=== PATIENT | male | born 2000 | race Caucasian/White ===

== ENCOUNTER 2021-02-19 08:34 | Emergency (ER) | payer OTHER ==
[2021-02-19 08:39] VITALS: BP 134/79; PULSE 88; RESP 18; TEMP 98.8
[2021-02-19] MEDS ORDERED: PENICILLIN V POTASSIUM 250 MG TAB PO STA (09:10)
[2021-02-19] MEDS ORDERED: KETOROLAC 15 MG/ML 1 ML VIAL IM STA (09:10)
--- NOTE | 2021-02-19 09:13 | ED ---
ENT HPI - General Chief complaint: Dental/Oral Stated complaint: dental pain Time Seen by Provider: 02/19/21 08:48 Source: patient Mode of arrival: ambulatory Limitations: no limitations - History of Present Illness Initial comments: Patient is a 20-year-old male presenting to the emergency Department with complaints of right-sided jaw swelling and dental pain started yesterday. Patient states he noticed a little discomfort yesterday and some mild jaw swelling but woke up early this morning with the swelling increased. He states he did take some Tylenol which seemed to help a little bit with the discomfort. He states this has happened in the past. He has yet to see a dentist regarding this. He has a fractured tooth in the right lower area that keeps causing him problems. He denies any fevers or chills, no nausea or vomiting. He currently rates his pain a 6/10. He has no further complaints at this time. - Related Data Previous Rx's Medication Instructions Recorded Penicillin V Potassium [Pen Vee K] 500 mg PO QID 10 Days #40 tablet 02/19/21 Allergies Allergy/AdvReac Type Severity Reaction Status Date / Time No Known Allergies Allergy Verified 02/19/21 08:38 Review of Systems ROS Statement: Those systems with pertinent positive or pertinent negative responses have been documented in the HPI. ROS Other: All systems not noted in ROS Statement are negative. Past Medical History Past Medical History: No Reported History History of Any Multi-Drug Resistant Organisms: None Reported Past Surgical History: No Surgical Hx Reported Past Psychological History: No Psychological Hx Reported Smoking Status: Current every day smoker Past Alcohol Use History: None Reported Past Drug Use History: None Reported General Exam - General Exam Comments Initial Comments: GENERAL: Patient is well-developed and well-nourished. Patient is nontoxic and in no acute distress. HEAD: Atraumatic, normocephalic. EYES: Pupils equal round and reactive to light, extraocular movements intact, sclera anicteric, conjunctiva are normal. Eyelids were unremarkable. ENT: TMs normal, nares patent, oropharynx clear without exudates. Moist mucous membranes. Patient has mild to moderate right sided lower jaw swelling, this does not go below the jaw line. He does have a fractured tooth and many dental caries on the right lower side, pain with palpation. Is having very small dental abscess noted on tooth #30. NECK: Normal range of motion, supple without lymphadenopathy or JVD. LUNGS: Unlabored respirations. Breath sounds clear to auscultation bilaterally and equal. No wheezes rales or rhonchi. HEART: Regular rate and rhythm without murmurs, rubs or gallops. ABDOMEN: Soft, nontender, normoactive bowel sounds. No guarding, no rebound. No masses appreciated. : Deferred MUSCULOSKELETAL: Normal extremities with adequate strength and normal range of motion, no pitting or edema. No clubbing or cyanosis. NEUROLOGICAL: Patient is alert and oriented x 3. Motor and sensory are also intact. Cranial nerves II through XII grossly intact. Symmetrical smile. Normal speech, normal gait. PSYCH: Normal mood, normal affect. SKIN: Warm, Dry, normal turgor, no rashes or lesions noted. Limitations: no limitations Course Vital Signs 02/19/21 08:37 Temperature 98.8 F Pulse Rate 88 Respiratory 18 Rate Blood Pressure 134/79 O2 Sat by Pulse 96 Oximetry Medical Decision Making - Medical Decision Making Patient is a 20-year-old male here for right-sided jaw swelling and dental pain that started yesterday. No fevers, his vitals are stable. He does have mild to moderate swelling of the right jaw, many dental decayed teeth, pain and small abscess present on tooth #30. I was able to get abscess to drain with a 27- gauge needle. I will start him on penicillin for dental abscess, Toradol given in the ER. He will follow up with dentist as soon as possible. Return parameters were discussed with him and he verbalized understanding. Case discussed with Dr. Eckert. Disposition Clinical Impression: Dental caries, Fracture of tooth, Dental abscess Disposition: HOME SELF-CARE Condition: Stable Instructions (If sedation given, give patient instructions): Dental Abscess (ED) Additional Instructions: Please return to the Emergency Department if symptoms worsen or any other concerns. Take antibiotics as prescribed, finish entire course. Recommend ibuprofen for discomfort and swelling, may alternate it with Tylenol. Follow-up with your dentist as soon as possible. Please follow up with the [facility] dental clinic. [facility] [place] [address]. Phone number for new patients or [phone] for existing patients. Prescriptions: Penicillin V Potassium [Pen Vee K] 500 mg PO QID 10 Days #40 tablet Is patient prescribed a controlled substance at d/c from ED?: No Referrals: None,Stated [Primary Care Provider] - 1-2 days Time of Disposition: 09:12
== END 2021-02-19 09:38 | disposition home or self-care (01) ==
LOC: EC 08:34
DX: S02.5XXA Fracture of tooth (traumatic), initial encounter for closed fracture (principal); K04.7 Periapical abscess without sinus; K02.9 Dental caries, unspecified; F17.200 Nicotine dependence, unspecified, uncomplicated; X58.XXXA Exposure to other specified factors, initial encounter
CPT/HCPCS: 41800; 96372; 99282

== ENCOUNTER 2021-04-11 09:11 | Emergency (ER) | payer OTHER ==
[2021-04-11 09:15] VITALS: TEMP 97.7
[2021-04-11] MEDS ORDERED: KETOROLAC 15 MG/ML 1 ML VIAL IVP STA (09:21)
--- NOTE | 2021-04-11 09:31 | ED ---
General Adult HPI - General Chief complaint: Chest Pain Stated complaint: Chest Pain Time Seen by Provider: 04/11/21 09:16 Source: patient Mode of arrival: wheelchair Limitations: no limitations - History of Present Illness Initial comments: 20-year-old male without any significant past medical history presents to the emergency room for a chief complaint of chest pain. Patient reports he developed chest pain at some point last night. States it is a sharp pain in the left side of his chest. States it hurts worse when he moves or takes a deep breath. States when he takes a deep breath he feels like he is being stabbed with a knife in his chest. Patient denies any radiating pain. Denies associated shortness of breath or diaphoresis.Patient has no other complaints at this time including shortness of breath, abdominal pain, nausea or vomiting, headache, or visual changes. - Related Data Home Medications Medication Instructions Recorded Confirmed Divalproex [Depakote] 250 mg PO BID 04/11/21 04/11/21 Allergies Allergy/AdvReac Type Severity Reaction Status Date / Time No Known Allergies Allergy Verified 04/11/21 09:49 Review of Systems ROS Statement: Those systems with pertinent positive or pertinent negative responses have been documented in the HPI. ROS Other: All systems not noted in ROS Statement are negative. Past Medical History Past Medical History: No Reported History History of Any Multi-Drug Resistant Organisms: None Reported Past Surgical History: No Surgical Hx Reported Past Psychological History: Bipolar Smoking Status: Current every day smoker Past Alcohol Use History: None Reported Past Drug Use History: None Reported General Exam Limitations: no limitations General appearance: alert, in no apparent distress Head exam: Present: atraumatic, normocephalic, normal inspection Eye exam: Present: normal appearance, PERRL, EOMI. Absent: scleral icterus, conjunctival injection, periorbital swelling ENT exam: Present: normal exam, mucous membranes moist Neck exam: Present: normal inspection, full ROM. Absent: tenderness, meningismus, lymphadenopathy Respiratory exam: Present: normal lung sounds bilaterally, chest wall tenderness. Absent: respiratory distress, wheezes, rales, rhonchi, stridor Cardiovascular Exam: Present: regular rate, normal rhythm, normal heart sounds. Absent: systolic murmur, diastolic murmur, rubs, gallop, clicks GI/Abdominal exam: Present: soft, normal bowel sounds. Absent: distended, tenderness, guarding, rebound, rigid Neurological exam: Present: alert Course Vital Signs 04/11/21 04/11/21 09:12 10:27 Temperature 97.7 F Pulse Rate 63 89 Respiratory 18 16 Rate Blood Pressure 123/70 110/54 O2 Sat by Pulse 98 99 Oximetry EKG Findings - EKG Comments: EKG Findings:: Sinus bradycardia, ventricular rate 58, TX interval 122, QTC 390 Medical Decision Making - Medical Decision Making Vitals are stable. CBC CMP unremarkable. EKG nonischemic. Troponin is negative. D-dimer is negative. Chest x-ray shows no acute process. Patient's pain is atypical in nature. It is pleuritic and sharp. Suspect inflammatory cause. Recommended taking Motrin for anti-inflammation and following up with primary care. He will return here for any worsening symptoms. - Lab Data Result diagrams: 04/11/21 09:33 04/11/21 09:33 Lab Results 04/11/21 04/11/21 04/11/21 Range/Units 09:33 09:33 09:33 WBC 5.0 (3.8-10.6) k/uL RBC 5.23 (4.30-5.90) m/uL Hgb 15.3 (13.0-17.5) gm/dL Hct 46.1 (39.0-53.0) % MCV 88.0 (80.0-100.0) fL MCH 29.2 (25.0-35.0) pg MCHC 33.2 (31.0-37.0) g/dL RDW 13.3 (11.5-15.5) % Plt Count 212 (150-450) k/uL MPV 8.4 Neutrophils % 51 % Lymphocytes % 34 % Monocytes % 8 % Eosinophils % 5 % Basophils % 1 % Neutrophils # 2.6 (1.3-7.7) k/uL Lymphocytes # 1.7 (1.0-4.8) k/uL Monocytes # 0.4 (0-1.0) k/uL Eosinophils # 0.2 (0-0.7) k/uL Basophils # 0.0 (0-0.2) k/uL PT 11.2 (9.0-12.0) sec INR 1.1 (<1.2) APTT 25.2 (22.0-30.0) sec D-Dimer <0.17 (<0.60) mg/L FEU Sodium 139 (137-145) mmol/L Potassium 4.4 (3.5-5.1) mmol/L Chloride 107 (98-107) mmol/L Carbon Dioxide 23 (22-30) mmol/L Anion Gap 9 mmol/L BUN 10 (9-20) mg/dL Creatinine 0.69 (0.66-1.25) mg/dL Est GFR (CKD-EPI)AfAm >90 (>60 ml/min/1.73 sqM) Est GFR (CKD-EPI)NonAf >90 (>60 ml/min/1.73 sqM) Glucose 95 (74-99) mg/dL Calcium 9.6 (8.4-10.2) mg/dL Magnesium 1.9 (1.6-2.3) mg/dL Total Bilirubin 0.9 (0.2-1.3) mg/dL AST 24 (17-59) U/L ALT 12 (4-49) U/L Alkaline Phosphatase 89 (38-126) U/L Troponin I (0.000-0.034) ng/mL Total Protein 6.9 (6.3-8.2) g/dL Albumin 4.1 (3.5-5.0) g/dL Amylase 64 (30-110) U/L 04/11/21 Range/Units 09:33 WBC (3.8-10.6) k/uL RBC (4.30-5.90) m/uL Hgb (13.0-17.5) gm/dL Hct (39.0-53.0) % MCV (80.0-100.0) fL MCH (25.0-35.0) pg MCHC (31.0-37.0) g/dL RDW (11.5-15.5) % Plt Count (150-450) k/uL MPV Neutrophils % % Lymphocytes % % Monocytes % % Eosinophils % % Basophils % % Neutrophils # (1.3-7.7) k/uL Lymphocytes # (1.0-4.8) k/uL Monocytes # (0-1.0) k/uL Eosinophils # (0-0.7) k/uL Basophils # (0-0.2) k/uL PT (9.0-12.0) sec INR (<1.2) APTT (22.0-30.0) sec D-Dimer (<0.60) mg/L FEU Sodium (137-145) mmol/L Potassium (3.5-5.1) mmol/L Chloride (98-107) mmol/L Carbon Dioxide (22-30) mmol/L Anion Gap mmol/L BUN (9-20) mg/dL Creatinine (0.66-1.25) mg/dL Est GFR (CKD-EPI)AfAm (>60 ml/min/1.73 sqM) Est GFR (CKD-EPI)NonAf (>60 ml/min/1.73 sqM) Glucose (74-99) mg/dL Calcium (8.4-10.2) mg/dL Magnesium (1.6-2.3) mg/dL Total Bilirubin (0.2-1.3) mg/dL AST (17-59) U/L ALT (4-49) U/L Alkaline Phosphatase (38-126) U/L Troponin I <0.012 (0.000-0.034) ng/mL Total Protein (6.3-8.2) g/dL Albumin (3.5-5.0) g/dL Amylase (30-110) U/L Disposition Clinical Impression: Atypical chest pain Disposition: HOME SELF-CARE Condition: Good Instructions (If sedation given, give patient instructions): Pleurisy (ED) Additional Instructions: Take Motrin 3-4 times daily. Follow-up with your doctor. Return to the emergency room for any worsening symptoms. Is patient prescribed a controlled substance at d/c from ED?: No Referrals: Navjot Kraft MD [REFERRING] - 1-2 days Time of Disposition: 11:53
--- NOTE | 2021-04-11 09:58 | XR ---
EXAMINATION TYPE: XR chest 2V DATE OF EXAM: 04/11/2021 COMPARISON: Chest x-ray May 30, 2020 HISTORY: Chest pain. TECHNIQUE: Frontal and lateral views of the chest are obtained. FINDINGS: There is no focal air space opacity, pleural effusion, or pneumothorax seen. The cardiac silhouette size remains within normal limits. The osseous structures are intact. Overlying EKG lead s on current study. IMPRESSION: No acute process. No significant change from prior.
[2021-04-11 10:26] LABS: Basophils % (A) 1 %; Eosinophils # (A) 0.2 k/uL (0-0.7); Eosinophils % (A) 5 %; HCT 46.1 % (39.0-53.0); HGB 15.3 gm/dL (13.0-17.5); Lymphocytes # (A) 1.7 k/uL (1.0-4.8); Lymphocytes % (A) 34 %; MCH 29.2 pg (25.0-35.0); MCHC 33.2 g/dL (31.0-37.0); Mean Platelet Volume 8.4; Monocytes # (A) 0.4 k/uL (0-1.0); Monocytes % (A) 8 %; Neutrophils # (A) 2.6 k/uL (1.3-7.7); Neutrophils % (A) 51 %; Platelet Count 212 k/uL (150-450); RBC 5.23 m/uL (4.30-5.90); RDW 13.3 % (11.5-15.5)
[2021-04-11 10:28] VITALS: RESP 16
[2021-04-11 10:37] LABS: ALT 12 U/L (4-49); AST 24 U/L (17-59); African American GFR (CKD) >90 (>60 ml/min/1.73 sqM); Albumin 4.1 g/dL (3.5-5.0); Alkaline Phosphatase 89 U/L (38-126); Amylase 64 U/L (30-110); Anion Gap 9 mmol/L; Blood Urea Nitrogen 10 mg/dL (9-20); Calcium 9.6 mg/dL (8.4-10.2); Carbon Dioxide 23 mmol/L (22-30); Chloride 107 mmol/L (98-107); Glucose 95 mg/dL (74-99); Magnesium 1.9 mg/dL (1.6-2.3); Non-African American GFR(CKD) >90 (>60 ml/min/1.73 sqM); Potassium 4.4 mmol/L (3.5-5.1); Sodium 139 mmol/L (137-145); Total Bilirubin 0.9 mg/dL (0.2-1.3); Total Protein 6.9 g/dL (6.3-8.2)
[2021-04-11 10:44] LABS: INR 1.1 (<1.2); Partial Thromboplastin Time 25.2 sec (22.0-30.0); Prothrombin Time 11.2 sec (9.0-12.0)
[2021-04-11 12:01] VITALS: BP 103/89; PULSE 79
== END 2021-04-11 12:00 | disposition home or self-care (01) ==
LOC: EC 09:11
DX: R07.89 Other chest pain (principal); F17.200 Nicotine dependence, unspecified, uncomplicated; F31.9 Bipolar disorder, unspecified
CPT/HCPCS: 99284; 96374; 36415; 93005; 85379; 80053; 82150; 83735; 84484; 85025; 85610; 85730; 71046; J1885

== ENCOUNTER 2021-07-05 08:14 | Emergency (ER) | payer BC, OTHER ==
[2021-07-05 08:18] VITALS: BP 114/69; PULSE 88; RESP 18; TEMP 97.5
--- NOTE | 2021-07-05 08:59 | XR ---
EXAMINATION TYPE: XR Hip RT and AP Pelvis DATE OF EXAM: 07/05/2021 COMPARISON: NONE HISTORY: Right hip pain TECHNIQUE: A single AP view of the pelvis is obtained. Two views of the right hip are obtained. FINDINGS: There is no acute fracture/dislocation evident in the pelvis. The hip and sacroiliac join ts appear symmetric and unremarkable. The overlying soft tissue appears unremarkable. Two views of right hip show no acute fracture or dislocation. No focal lytic or sclerotic lesion see n in the proximal right femur. The overlying soft tissue is unremarkable. IMPRESSION: There is no acute fracture or dislocation in the pelvis or right hip. Right hip MRI may be of benefit.
[2021-07-05] MEDS ORDERED: KETOROLAC 15 MG/ML 1 ML VIAL IM STA (09:07)
--- NOTE | 2021-07-05 09:18 | ED ---
Extremity Problem HPI - General Chief complaint: Extremity Problem,Nontraumatic Stated complaint: hip pain Time Seen by Provider: 07/05/21 08:22 Source: patient, RN notes reviewed Limitations: no limitations - History of Present Illness Initial comments: Patient is a 21-year-old male that presents to emergency room complaining of right hip pain. He notes the pain is worse when he walks and flexes his hip. He denied any nausea vomiting. He is otherwise well-appearing. He notes that the pains been going on since Thursday. He notes that at rest pain is minimal. He notes that when he pushed on his lower anterior hip he has pain he suspects is more muscular but wanted to check to make sure it wasn't anything bone related. Patient denied chest pain shortness of breath headache nausea vomiting diarrhea constipation fever fatigue chills. Patient is able to ambulate on its own without difficulty. - Related Data Home Medications Medication Instructions Recorded Confirmed Divalproex [Depakote] 250 mg PO BID 04/11/21 04/11/21 Allergies Allergy/AdvReac Type Severity Reaction Status Date / Time No Known Allergies Allergy Verified 07/05/21 08:18 Review of Systems ROS Statement: Those systems with pertinent positive or pertinent negative responses have been documented in the HPI. ROS Other: All systems not noted in ROS Statement are negative. Past Medical History Past Medical History: No Reported History History of Any Multi-Drug Resistant Organisms: None Reported Past Surgical History: No Surgical Hx Reported Additional Past Surgical History / Comment(s): testical surgery at 9. Past Psychological History: Bipolar Smoking Status: Current every day smoker, Vaper Past Alcohol Use History: Occasional Past Drug Use History: None Reported General Exam Limitations: no limitations General appearance: alert, in no apparent distress Head exam: Present: atraumatic, normocephalic, normal inspection Eye exam: Present: normal appearance, PERRL, EOMI. Absent: scleral icterus, conjunctival injection, periorbital swelling ENT exam: Present: normal exam, mucous membranes moist Neck exam: Present: normal inspection Respiratory exam: Present: normal lung sounds bilaterally. Absent: respiratory distress, wheezes, rales, rhonchi, stridor Cardiovascular Exam: Present: regular rate, normal rhythm, normal heart sounds. Absent: systolic murmur, diastolic murmur, rubs, gallop, clicks GI/Abdominal exam: Present: soft, normal bowel sounds. Absent: distended, tenderness, guarding, rebound, rigid Right Hip exam: Present: normal inspection, full ROM, tenderness (Over the anterior aspect in the area of the hip flexor.). Absent: swelling, abrasion, laceration, ecchymosis, deformity, crepitus, dislocation, erythema, external rotation, internal rotation, shortening, pelvic stability Neurological exam: Present: alert, oriented X3 Psychiatric exam: Present: normal affect, normal mood Skin exam: Present: warm, dry, intact, normal color. Absent: rash Course Vital Signs 07/05/21 08:15 Temperature 97.5 F L Pulse Rate 88 Respiratory 18 Rate Blood Pressure 114/69 O2 Sat by Pulse 97 Oximetry Medical Decision Making - Medical Decision Making 21-year-old male complaining of right hip pain. X-ray the right hip and pelvis ordered. X-ray negative for any acute fractures or dislocations. Given patient's clinical signs or symptoms and negative imaging most likely has a muscle strain in the hip flexor. Case discussed with Dr. Liu, patient discharge. - Radiology Data Radiology results: report reviewed, image reviewed right hip/AP pelvis xray: no acute fracture or dislocation seen. Disposition Clinical Impression: Muscle strain, Strain of hip flexor Disposition: HOME SELF-CARE Condition: Stable Instructions (If sedation given, give patient instructions): Muscle Strain (ED) Additional Instructions: Please return to the Emergency Department if symptoms worsen or any other concerns. Follow-up with primary care 1-2 days. Take Tylenol and Motrin alternating every 3 hours as needed for pain. Is patient prescribed a controlled substance at d/c from ED?: No Referrals: None,Stated [Primary Care Provider] - 1-2 days Time of Disposition: 09:25
== END 2021-07-05 09:42 | disposition home or self-care (01) ==
LOC: EC 08:14
DX: S76.011A Strain of muscle, fascia and tendon of right hip, initial encounter (principal); F31.9 Bipolar disorder, unspecified; F17.200 Nicotine dependence, unspecified, uncomplicated; X50.0XXA Overexertion from strenuous movement or load, initial encounter
CPT/HCPCS: 99284; 96372; 73502; J1885

== ENCOUNTER 2021-09-27 10:46 | Emergency (ER) | payer OTHER ==
[2021-09-27 10:55] VITALS: BP 130/70; PULSE 71; RESP 20; TEMP 98
--- NOTE | 2021-09-27 11:47 | ED ---
General Adult HPI - General Chief complaint: ENT Stated complaint: Dizziness/throat swelling Time Seen by Provider: 09/27/21 10:59 Source: patient Mode of arrival: ambulatory Limitations: no limitations - History of Present Illness Initial comments: This 20-year-old male presents emergency department with congestion and sore throat 2 days. Patient states over the last 2 days he has also occasionally felt dizzy, however he has not felt that today. This patient states he has had a little bit of a cough with clear mucus production. Patient denies any fever, shortness of breath, chest pain, abdominal pain, change in bowel or bladder, change in vision, lightheadedness, nausea, vomiting - Related Data Home Medications Medication Instructions Recorded Confirmed No Known Home Medications 09/27/21 09/27/21 Allergies Allergy/AdvReac Type Severity Reaction Status Date / Time No Known Allergies Allergy Verified 09/27/21 12:05 Review of Systems ROS Statement: Those systems with pertinent positive or pertinent negative responses have been documented in the HPI. ROS Other: All systems not noted in ROS Statement are negative. Past Medical History Past Medical History: No Reported History History of Any Multi-Drug Resistant Organisms: None Reported Past Surgical History: No Surgical Hx Reported Additional Past Surgical History / Comment(s): testical surgery at 9. Past Psychological History: Bipolar Smoking Status: Current every day smoker, Vaper Past Alcohol Use History: Occasional Past Drug Use History: None Reported General Exam Limitations: no limitations General appearance: alert, in no apparent distress Head exam: Present: atraumatic, normocephalic Eye exam: Present: normal appearance, EOMI ENT exam: Present: normal exam, mucous membranes moist, other (Poor dentition with some absent teeth. Posterior oropharynx without erythema, exudates, or drainage) Neck exam: Present: full ROM. Absent: tenderness, meningismus, lymphadenopathy Respiratory exam: Present: normal lung sounds bilaterally. Absent: respiratory distress, wheezes, rales, rhonchi, stridor Cardiovascular Exam: Present: regular rate, normal rhythm, normal heart sounds. Absent: systolic murmur, diastolic murmur, rubs, gallop, clicks GI/Abdominal exam: Present: soft, normal bowel sounds. Absent: distended, tenderness, guarding, rebound, rigid Extremities exam: Present: normal inspection, full ROM, normal capillary refill. Absent: tenderness, pedal edema, joint swelling, calf tenderness Back exam: Present: full ROM. Absent: CVA tenderness (R), CVA tenderness (L) Neurological exam: Present: alert, oriented X3, CN II-XII intact Psychiatric exam: Present: normal affect, normal mood Skin exam: Present: warm, dry, intact, normal color. Absent: rash Course Vital Signs 09/27/21 10:53 Temperature 98 F Pulse Rate 71 Respiratory 20 Rate Blood Pressure 130/70 O2 Sat by Pulse 97 Oximetry Medical Decision Making - Medical Decision Making This 21-year-old male presents emergency Department with congestion and sore throat 2 days. COVID-19 positive. Negative strep test. Conservative therapy discussed with patient about COVID-19. Patient advised to get pulse oximeter from [facility] and to return to the emergency department if ever below 90%. Patient informed he could take Tylenol or Motrin for symptom relief as directed. Patient to be sent home to follow-up with primary care provider next 24-48 hours. Strict return precautions given. Patiently verbally agreed to plan. Patient sent home in stable condition. - Lab Data Lab Results 09/27/21 09/27/21 Range/Units 11:16 11:16 Coronavirus (PCR) Detected A (Not Detectd) Group A Strep Rapid Negative (Negative) Disposition Clinical Impression: COVID-19 Disposition: HOME SELF-CARE Condition: Stable Instructions (If sedation given, give patient instructions): Coronavirus Disease 2019 (COVID-19) Additional Instructions: Please return to the emergency department with any concerning, new, or worsening symptoms. Please follow-up with primary care provider next 24-48 hours. Advised to take [id number] zinc, vitamin C, vitamin D. Can take Tylenol or Motrin as directed for symptom relief. Advised to get pulse oximeter from [facility] and to return to the emergency department with oxygen drops below 90%. Stay hydrated and drink plenty of water. Is patient prescribed a controlled substance at d/c from ED?: No Referrals: None,Stated [Primary Care Provider] - 1-2 days Time of Disposition: 13:24
== END 2021-09-27 13:34 | disposition home or self-care (01) ==
LOC: EC 10:46
DX: U07.1 COVID-19 (principal); F17.290 Nicotine dependence, other tobacco product, uncomplicated
CPT/HCPCS: 87081; 87430; 87635; 99283

== ENCOUNTER 2022-08-04 08:47 | Emergency (ER) | payer BC, OTHER ==
[2022-08-04 09:09] VITALS: TEMP 98.1
--- NOTE | 2022-08-04 09:19 | ED ---
ENT HPI - General Chief complaint: Dental/Oral Stated complaint: Jaw Pain Time Seen by Provider: 08/04/22 09:09 Source: patient, RN notes reviewed Mode of arrival: ambulatory Limitations: no limitations - History of Present Illness Initial comments: Patient is a 22 year old male presenting to the ER with a chief complaint of right jaw pain. Patient states this has been going on for the past couple of days. He was wrestling with his kids when he was hit on the right side of his jaw. Patient rates the pain 5/10. He reports it hurts to talk, yawn and chew. Patient has been taking Motrin for pain. Patient denies ear pain or regular dental visits. No other complaint at this time. - Related Data Previous Rx's Medication Instructions Recorded Ibuprofen [Motrin] 600 mg PO Q8HR PRN #30 tab 08/04/22 Allergies Allergy/AdvReac Type Severity Reaction Status Date / Time No Known Allergies Allergy Verified 08/04/22 10:02 Review of Systems ROS Statement: Those systems with pertinent positive or pertinent negative responses have been documented in the HPI. ROS Other: All systems not noted in ROS Statement are negative. Past Medical History Past Medical History: No Reported History History of Any Multi-Drug Resistant Organisms: None Reported Past Surgical History: No Surgical Hx Reported Additional Past Surgical History / Comment(s): testical surgery at 9. Past Psychological History: Bipolar Smoking Status: Current every day smoker Past Alcohol Use History: Occasional Past Drug Use History: None Reported General Exam Limitations: no limitations General appearance: alert, in no apparent distress Head exam: Present: atraumatic, normocephalic, normal inspection Eye exam: Present: normal appearance, PERRL, EOMI. Absent: scleral icterus, conjunctival injection, periorbital swelling ENT exam: Present: normal exam, mucous membranes moist, other (multiple dental carries; right TMJ tenderness to palpation and with movement) Neck exam: Present: normal inspection. Absent: tenderness, meningismus, lymphadenopathy Respiratory exam: Present: normal lung sounds bilaterally. Absent: respiratory distress, wheezes, rales, rhonchi, stridor Cardiovascular Exam: Present: regular rate, normal rhythm, normal heart sounds. Absent: systolic murmur, diastolic murmur, rubs, gallop, clicks GI/Abdominal exam: Present: soft, normal bowel sounds. Absent: distended, tenderness, guarding, rebound, rigid Course Vital Signs 08/04/22 09:06 Temperature 98.1 F Pulse Rate 66 Respiratory 18 Rate Blood Pressure 131/71 O2 Sat by Pulse 100 Oximetry Medical Decision Making - Medical Decision Making 22-year-old presented for jaw pain x-ray read by me does not show an acute fracture or acute abnormality. Patient has motions is a TMJ may be exacerbated by recent trauma. Patient discharged in stable condition return parameters were discussed. Disposition Clinical Impression: Temporomandibular joint disorder, Mandibular pain Disposition: HOME SELF-CARE Condition: Stable Instructions (If sedation given, give patient instructions): Temporomandibular Disorder (ED) Additional Instructions: Please return to the Emergency Department if symptoms worsen or any other concerns. Prescriptions: Ibuprofen [Motrin] 600 mg PO Q8HR PRN #30 tab PRN Reason: Pain Is patient prescribed a controlled substance at d/c from ED?: No Referrals: None,Stated [Primary Care Provider] - 1-2 days Time of Disposition: 10:48
--- NOTE | 2022-08-04 10:43 | XR ---
EXAMINATION TYPE: XR mandible complete DATE OF EXAM: 08/04/2022 COMPARISON: None HISTORY: Pain right side jaw from injury TECHNIQUE: 5 view mandible FINDINGS: Mandible appears intact. Temporomandibular junctions as visualized appear normal. Follow up exams can be performed as clinically indicated. IMPRESSION: 1. No acute osseous abnormality mandible.
[2022-08-04 11:21] VITALS: BP 113/81; PULSE 71; RESP 17
== END 2022-08-04 11:21 | disposition home or self-care (01) ==
LOC: EC 08:47
DX: M26.609 Unspecified temporomandibular joint disorder, unspecified side (principal); F17.200 Nicotine dependence, unspecified, uncomplicated
CPT/HCPCS: 70110; 99283

== ENCOUNTER → 2022-10-01 | Outpatient (CLI) | payer OTHER ==
--- NOTE | 2022-10-01 11:04 | XR ---
EXAMINATION TYPE: XR finger LT DATE OF EXAM: 10/01/2022 10:57 AM INDICATION: Patient age:Male; 22 years old; Reason for study: S60.032A LMF injury; [facility]. COMPARISON: None TECHNIQUE: Frontal, lateral and oblique views of the third digit of the left hand were obtained. FINDINGS: Normal alignment of the visualized joints. No acute osseous pathology is identified. Mild diffuse soft tissue swelling. No radiopaque foreign bodies. IMPRESSION: 1. No acute osseous pathology. 2. Mild diffuse soft tissue swelling of the third digit.
== END | disposition home or self-care (01) ==
LOC: RADXRMAIN 10:33
PROVIDERS: ATTEND Emergency Medicine
DX: S60.032A Contusion of left middle finger without damage to nail, initial encounter (principal); M79.89 Other specified soft tissue disorders; X58.XXXA Exposure to other specified factors, initial encounter

== ENCOUNTER 2022-11-21 19:24 | Emergency (ER) | payer BC, OTHER ==
[2022-11-21 20:31] VITALS: BP 143/83; PULSE 86; RESP 20
--- NOTE | 2022-11-21 21:21 | ED ---
Wound/Laceration HPI - General Chief Complaint: Wound/Laceration Stated Complaint: cut right foot laceration Time Seen by Provider: 11/21/22 21:00 Source: patient Mode of arrival: ambulatory Limitations: no limitations - History of Present Illness Initial Comments: Patient is a 22-year-old male presenting with chief complaint of laceration. Patient has a 1 cm laceration to the right fifth toe. Patient was using a pocket knife to open a box and dropped the knife on the foot. Bleeding is well controlled at time of presentation. No numbness or tingling. Patient has full range of motion. Patient's last tetanus shot was 2 years ago. - Related Data Home Medications Medication Instructions Recorded Confirmed No Known Home Medications 11/21/22 11/21/22 Allergies Allergy/AdvReac Type Severity Reaction Status Date / Time No Known Allergies Allergy Verified 11/21/22 20:31 Review of Systems ROS Statement: Those systems with pertinent positive or pertinent negative responses have been documented in the HPI. ROS Other: All systems not noted in ROS Statement are negative. Past Medical History Past Medical History: No Reported History History of Any Multi-Drug Resistant Organisms: None Reported Past Surgical History: No Surgical Hx Reported Additional Past Surgical History / Comment(s): testical surgery at 9. Past Psychological History: Bipolar Smoking Status: Current every day smoker Past Alcohol Use History: Occasional Past Drug Use History: None Reported General Exam Limitations: no limitations General appearance: alert, in no apparent distress Head exam: Present: atraumatic, normocephalic, normal inspection Eye exam: Present: normal appearance Neck exam: Present: normal inspection Neurological exam: Present: alert, oriented X3, CN II-XII intact Psychiatric exam: Present: normal affect, normal mood Expanded Type of lesion: Present: laceration (1 cm right fifth toe) Course Vital Signs 11/21/22 11/21/22 20:29 21:31 Temperature 98.4 F 98.1 F Pulse Rate 86 Respiratory 20 Rate Blood Pressure 143/83 O2 Sat by Pulse 99 Oximetry Procedures - Laceration Laceration #1 Consent Obtained: verbal consent Indication: laceration Site: foot Size (cm): 1 Description: linear Depth: simple, single layer Anesthetic Used: lidocaine 1%, without epi Anesthesia Technique: local infiltration Pre-repair: wound explored, irrigated extensively Size of Sutures: 4-0 Number of Sutures: 2 Technique: simple, interrupted Patient Tolerated Procedure: well Medical Decision Making - Medical Decision Making Was pt. sent in by a medical professional or institution ([facility] Ryder, [employer], urgent care, hospital, or retirement...) When possible be specific @ -No Did you speak to anyone other than the patient for history (EMS, parent, family, police, friend...)? What history was obtained from this source @ -No Did you review nursing and triage notes (agree or disagree)? Why? @ -I reviewed and agree with nursing and triage notes Were old charts reviewed (outside hosp., previous admission, EMS record, old EKG, old radiological studies, urgent care reports/EKG's, retirement records)? Report findings @ -No old charts were reviewed Differential Diagnosis (chest pain, altered mental status, abdominal pain women, abdominal pain men, vaginal bleeding, weakness, fever, dyspnea, syncope, headac he, dizziness, GI bleed, back pain, seizure, CVA, palpatations, mental health, musculoskeletal)? @ -not applicable EKG interpreted by me (3pts min.). @ -As above X-rays interpreted by me (1pt min.). @ -None done CT interpreted by me (1pt min.). @ -None done U/S interpreted by me (1pt. min.). @ -None done What testing was considered but not performed or refused? (CT, X-rays, U/S, labs)? Why? @ -None What meds were considered but not given or refused? Why? @ -None Did you discuss the management of the patient with other professionals (professionals i.e. KERVIN Ryder, SW[employer]MING [employer] MAINTENANCE, lab, RT, psych nurse, social media intern, java tech lead, teacher, agricultural technical officer, shoe parts caser)? Give summary @ -No Was smoking cessation discussed for >3mins.? @ -No Was critical care preformed (if so, how long)? @ -No Were there social determinants of health that impacted care today? How? (Homelessness, low income, unemployed, alcoholism, drug addiction, transportation, low edu. Level, literacy, decrease access to med. care, [facility], rehab)? @ -No Was there de-escalation of care discussed even if they declined (Discuss DNR or withdrawal of care, Hospice)? DNR status @ -No What co-morbidities impacted this encounter? (DM, HTN, Smoking, COPD, CAD, Cancer, CVA, ARF, Chemo, Hep., AIDS, mental health diagnosis, sleep apnea, morbid obesity)? @ -None Was patient admitted / discharged? Hospital course, mention meds given and route, prescriptions, significant lab abnormalities, going to OR and other pertinent info. @ -Patient is a 22-year-old male presenting with laceration to the right fifth toe. Patient dropped his pocket knife on his foot. Normal range of motion and sensation are intact. Last tetanus shot was 2 years ago. Wound is repaired, see procedure note. Patient is educated on wound care and signs of infection. Follow-up with PCP. Report back to ER with any new or worsening symptoms. Discussed return parameters and answered all questions. Patient conveyed verbal understanding and agreed to the plan. I discussed this case in detail with my attending Dr. Wu Undiagnosed new problem with uncertain prognosis? @ -No Drug Therapy requiring intensive monitoring for toxicity (Heparin, Nitro, Insulin, Cardizem)? @ -No Were any procedures done? @ -Laceration repair Diagnosis/symptom? @ -Laceration Acute, or Chronic, or Acute on Chronic? @ -Acute Uncomplicated (without systemic symptoms) or Complicated (systemic symptoms)? @ -Uncomplicated Side effects of treatment? @ -No Exacerbation, Progression, or Severe Exacerbation? @ -No Poses a threat to life or bodily function? How? (Chest pain, [place], [place], pneumonia, PE, COPD, DKA, ARF, appy, cholecystitis, CVA, Diverticulitis, Homicidal, Suicidal, threat to staff... and all critical care pts) @ -No Disposition Clinical Impression: Laceration Disposition: HOME SELF-CARE Condition: Good Instructions (If sedation given, give patient instructions): Care For Your Stitches (ED), Laceration (ED) Additional Instructions: Follow-up with PCP. Report back to ER with any new or worsening symptoms. Keep the wound clean, dry, and covered. He may cleanse gently with soap and water daily. Avoid fully submerging the wound such as swimming or baths. Watch for signs of infection, including but not limited to redness, swelling, warmth, tenderness, discharge. Sutures may be removed in 10-14 days. Is patient prescribed a controlled substance at d/c from ED?: No Referrals: None,Stated [Primary Care Provider] - 1-2 days Time of Disposition: 21:20
[2022-11-21 21:33] VITALS: TEMP 98.1
== END 2022-11-21 21:51 | disposition home or self-care (01) ==
LOC: EC 19:24
DX: S91.311A Laceration without foreign body, right foot, initial encounter (principal); F31.9 Bipolar disorder, unspecified; F17.200 Nicotine dependence, unspecified, uncomplicated; W26.0XXA Contact with knife, initial encounter
CPT/HCPCS: 12001; 99282

== ENCOUNTER 2022-12-04 07:40 | Emergency (ER) | payer BC, OTHER ==
--- NOTE | 2022-12-04 07:50 | ED ---
URI HPI - General Chief Complaint: Upper Respiratory Infection Stated Complaint: CHEST PAIN Time Seen by Provider: 12/04/22 07:47 Source: patient, RN notes reviewed Mode of arrival: ambulatory Limitations: no limitations - History of Present Illness Initial Comments: 22-year-old male presents emergency Department with chief complaint of cough and cold-like symptoms. Patient states been sick for last 2-3 days. Patient states his significant other was recently diagnosed with pneumonia. Patient states he has increasing congestion filter broadsided her breathing treatment at home. He has no GI complaints including nausea vomiting diarrhea constipation denies any significant ear pain or sore throat. - Related Data Previous Rx's Medication Instructions Recorded RX: Azithromycin [Zithromax Z Pack] 0 tab PO DIRECTED #6 tab 12/04/22 RX: predniSONE 50 mg PO DAILY #5 tab 12/04/22 Allergies Allergy/AdvReac Type Severity Reaction Status Date / Time No Known Allergies Allergy Verified 12/04/22 07:45 Review of Systems ROS Statement: Those systems with pertinent positive or pertinent negative responses have been documented in the HPI. ROS Other: All systems not noted in ROS Statement are negative. Past Medical History Past Medical History: No Reported History History of Any Multi-Drug Resistant Organisms: None Reported Past Surgical History: No Surgical Hx Reported Additional Past Surgical History / Comment(s): testical surgery at 9. Past Psychological History: Bipolar Smoking Status: Vaper Past Alcohol Use History: Occasional Past Drug Use History: None Reported General Exam Limitations: no limitations General appearance: alert, in no apparent distress Head exam: Present: atraumatic, normocephalic, normal inspection Eye exam: Present: normal appearance, PERRL, EOMI. Absent: scleral icterus, conjunctival injection, periorbital swelling ENT exam: Present: normal exam, mucous membranes moist Neck exam: Present: normal inspection, full ROM. Absent: tenderness, meningismus, lymphadenopathy Respiratory exam: Present: normal lung sounds bilaterally. Absent: respiratory distress, wheezes, rales, rhonchi, stridor Cardiovascular Exam: Present: regular rate, normal rhythm, normal heart sounds. Absent: systolic murmur, diastolic murmur, rubs, gallop, clicks GI/Abdominal exam: Present: soft, normal bowel sounds. Absent: distended, tenderness, guarding, rebound, rigid Course Vital Signs 12/04/22 07:43 Temperature 98 F Pulse Rate 77 Respiratory 20 Rate Blood Pressure 124/77 O2 Sat by Pulse 98 Oximetry Medical Decision Making - Medical Decision Making Was pt. sent in by a medical professional or institution (KERVIN Ryder, HYDRO STATION OPERATOR, urgent care, hospital, or long-term...) When possible be specific @ -No Did you speak to anyone other than the patient for history (EMS, parent, family, police, friend...)? What history was obtained from this source @ -No Did you review nursing and triage notes (agree or disagree)? Why? @ -I reviewed and agree with nursing and triage notes Were old charts reviewed (outside hosp., previous admission, EMS record, old EKG, old radiological studies, urgent care reports/EKG's, long-term records)? Report findings @ -No old charts were reviewed Differential Diagnosis (chest pain, altered mental status, abdominal pain women, abdominal pain men, vaginal bleeding, weakness, fever, dyspnea, syncope, headache, dizziness, GI bleed, back pain, seizure, CVA, palpatations, mental health, musculoskeletal)? @ -RSV, influenza, Covid, URI, this this is not all inclusive EKG interpreted by me (3pts min.). @ -None X-rays interpreted by me (1pt min.). @ -Chest x-ray shows no acute cardiopulmonary process CT interpreted by me (1pt min.). @ -None done U/S interpreted by me (1pt. min.). @ -None done What testing was considered but not performed or refused? (CT, X-rays, U/S, labs)? Why? @ -None What meds were considered but not given or refused? Why? @ -None Did you discuss the management of the patient with other professionals (professionals i.e. KERVIN Ryder, HYDRO STATION OPERATOR, lab, RT, psych nurse, social insurance specialist, patternmaker, teacher, customs officer, director case)? Give summary @ -No Was smoking cessation discussed for >3mins.? @ -No Was critical care preformed (if so, how long)? @ -No Were there social determinants of health that impacted care today? How? (Homelessness, low income, unemployed, alcoholism, drug addiction, transportation, low edu. Level, literacy, decrease access to med. care, longterm, rehab)? @ -No Was there de-escalation of care discussed even if they declined (Discuss DNR or withdrawal of care, Hospice)? DNR status @ -No What co-morbidities impacted this encounter? (DM, HTN, Smoking, COPD, CAD, Cancer, CVA, ARF, Chemo, Hep., AIDS, mental health diagnosis, sleep apnea, morbid obesity)? @ -None Was patient admitted / discharged? Hospital course, mention meds given and route, prescriptions, significant lab abnormalities, going to OR and other pertinent info. @ -Discharge patient has negative swallow, negative x-ray patient did have mild wheezing, patient has symptoms consistent with acute bronchitis patient was discharged in stable condition return parameters discussed. Undiagnosed new problem with uncertain prognosis? @ -No Drug Therapy requiring intensive monitoring for toxicity (Heparin, Nitro, Insulin, Cardizem)? @ -No Were any procedures done? @ -No Diagnosis/symptom? @ -Acute bronchitis Acute, or Chronic, or Acute on Chronic? @ -Acute Uncomplicated (without systemic symptoms) or Complicated (systemic symptoms)? @ -Uncomplicated Side effects of treatment? @ -No Exacerbation, Progression, or Severe Exacerbation? @ -No Poses a threat to life or bodily function? How? (Chest pain, [place], [place], pneumonia, PE, COPD, DKA, ARF, appy, cholecystitis, CVA, Diverticulitis, Homicidal, Suicidal, threat to staff... and all critical care pts) @ -No - Lab Data Lab Results 12/04/22 Range/Units 07:57 Influenza Type A (PCR) Not Detected (Not Detectd) Influenza Type B (PCR) Not Detected (Not Detectd) RSV (PCR) Not Detected (Not Detectd) SARS-CoV-2 (PCR) Not Detected (Not Detectd) Disposition Clinical Impression: Bronchitis Disposition: HOME SELF-CARE Condition: Stable Instructions (If sedation given, give patient instructions): Upper Respiratory Infection (ED) Additional Instructions: Please return to the Emergency Department if symptoms worsen or any other concerns. Prescriptions: RX: predniSONE 50 mg PO DAILY #5 tab RX: Azithromycin [Zithromax Z Pack] 0 tab PO DIRECTED #6 tab Is patient prescribed a controlled substance at d/c from ED?: No Referrals: None,Stated [Primary Care Provider] - 1-2 days Time of Disposition: 09:12
--- NOTE | 2022-12-04 08:31 | XR ---
EXAMINATION TYPE: XR chest 2V DATE OF EXAM: 12/04/2022 COMPARISON: 04/11/2021 INDICATION: Cough and congestion TECHNIQUE: Frontal and lateral views of the chest are obtained. FINDINGS: The heart size is normal. The pulmonary vasculature is normal. The lungs are clear. IMPRESSION: 1. No acute pulmonary process.
[2022-12-04 09:20] VITALS: BP 118/78; PULSE 78; RESP 18; TEMP 97.7
== END 2022-12-04 09:20 | disposition home or self-care (01) ==
LOC: EC 07:40
DX: J40 Bronchitis, not specified as acute or chronic (principal); F17.290 Nicotine dependence, other tobacco product, uncomplicated; Z20.822 Contact with and (suspected) exposure to COVID-19
CPT/HCPCS: 71046; 87636; 99285

== ENCOUNTER 2023-07-20 16:37 | Emergency (ER) | payer BC, OTHER ==
[2023-07-20 16:49] VITALS: RESP 16
[2023-07-20] MEDS ORDERED: PROPARACAINE 0.5% OPHTH DROPS 15 ML BTL RIGHT EYE STA (17:02)
[2023-07-20] MEDS ORDERED: FLUORESCEIN STRIPS 1 MG STRIP RIGHT EYE ONE (17:02)
[2023-07-20] MEDS ORDERED: CIPROFLOXACIN 0.3% OPHTH SOLN 5 ML BTL RIGHT EYE STA (17:27)
--- NOTE | 2023-07-20 17:29 | ED ---
General Adult HPI - General Chief complaint: Eye Problems Stated complaint: right eye issue Time Seen by Provider: 07/20/23 16:53 Source: patient, RN notes reviewed Mode of arrival: ambulatory Limitations: no limitations - History of Present Illness Initial comments: 23-year-old male presents to the emergency department with chief complaint of right eye foreign body. He states that yesterday he was working with wood when he noticed irritation in his right eye. He states that he has had the foreign body sensation since then. He reports that he feels his vision is the same as it usually is. He is up-to-date on tetanus vaccination. - Related Data Previous Rx's Medication Instructions Recorded Azithromycin [Zithromax Z Pack] 0 tab PO DIRECTED #6 tab 12/04/22 predniSONE 50 mg PO DAILY #5 tab 12/04/22 Allergies Allergy/AdvReac Type Severity Reaction Status Date / Time No Known Allergies Allergy Verified 07/20/23 16:47 Review of Systems ROS Statement: Those systems with pertinent positive or pertinent negative responses have been documented in the HPI. ROS Other: All systems not noted in ROS Statement are negative. Past Medical History Past Medical History: No Reported History History of Any Multi-Drug Resistant Organisms: None Reported Past Surgical History: No Surgical Hx Reported Additional Past Surgical History / Comment(s): testical surgery at 9. Past Psychological History: Bipolar Smoking Status: Vaper Past Alcohol Use History: Occasional Past Drug Use History: None Reported General Exam Limitations: no limitations Course Vital Signs 07/20/23 16:44 Temperature 98.1 F Pulse Rate 76 Respiratory 16 Rate Blood Pressure 115/76 O2 Sat by Pulse 98 Oximetry Medical Decision Making - Medical Decision Making Was pt. sent in by a medical professional or institution (, PA, LEAD MANUFACTURING ENGINEER, urgent care, hospital, or detention...) When possible be specific @ -No Did you speak to anyone other than the patient for history (EMS, parent, family, police, friend...)? What history was obtained from this source @ -No Did you review nursing and triage notes (agree or disagree)? Why? @ -I reviewed and agree with nursing and triage notes Were old charts reviewed (outside hosp., previous admission, EMS record, old EKG, old radiological studies, urgent care reports/EKG's, detention records)? Report findings @ -No old charts were reviewed Differential Diagnosis (chest pain, altered mental status, abdominal pain women, abdominal pain men, vaginal bleeding, weakness, fever, dyspnea, syncope, headache, dizziness, GI bleed, back pain, seizure, CVA, palpatations, mental health, musculoskeletal)? @ -Eye foreign body, corneal abrasion, iritis, conjunctivitis, preorbital cellulitis, this list is not all-inclusive EKG interpreted by me (3pts min.). @ -None X-rays interpreted by me (1pt min.). @ -None done CT interpreted by me (1pt min.). @ -None done U/S interpreted by me (1pt. min.). @ -None done What testing was considered but not performed or refused? (CT, X-rays, U/S, labs)? Why? @ -None What meds were considered but not given or refused? Why? @ -None Did you discuss the management of the patient with other professionals (professionals i.e. , PA, LEAD MANUFACTURING ENGINEER, lab, RT, psych nurse, social media executive, corrosion prevention metal sprayer, teacher, contracting officer, case resolution specialist)? Give summary @ -No Was smoking cessation discussed for >3mins.? @ -No Was critical care preformed (if so, how long)? @ -No Were there social determinants of health that impacted care today? How? (Homeles sness, low income, unemployed, alcoholism, drug addiction, transportation, low edu. Level, literacy, decrease access to med. care, shelter, rehab)? @ -No Was there de-escalation of care discussed even if they declined (Discuss DNR or withdrawal of care, Hospice)? DNR status @ -No What co-morbidities impacted this encounter? (DM, HTN, Smoking, COPD, CAD, Cancer, CVA, ARF, Chemo, Hep., AIDS, mental health diagnosis, sleep apnea, morbid obesity)? @ -None Was patient admitted / discharged? Hospital course, mention meds given and route, prescriptions, significant lab abnormalities, going to OR and other pertinent info. @ -Discharged. Patient presented to emergency department for chief complaint of right eye foreign body. Mccarthy lamp examination shows no obvious corneal abrasion. There was a small foreign body on the surface of the eyelid. Visual acuity equal bilaterally with glasses. EOMs intact, No pain with eye movements. Patient will be discharged home with ciprofloxacin eyedrops to instill. Advised him instructions of use. Patient stable at time of discharge. Case discussed with OMKAR Pérez. Undiagnosed new problem with uncertain prognosis? @ -No Drug Therapy requiring intensive monitoring for toxicity (Heparin, Nitro, Insulin, Cardizem)? @ -No Were any procedures done? @ -No Diagnosis/symptom? @ -right eye foreign body Acute, or Chronic, or Acute on Chronic? @ -acute Uncomplicated (without systemic symptoms) or Complicated (systemic symptoms)? @ -uncomplicated Side effects of treatment? @ -No Exacerbation, Progression, or Severe Exacerbation? @ -No Poses a threat to life or bodily function? How? (Chest pain, [place], [place], pneumonia, PE, COPD, DKA, ARF, appy, cholecystitis, CVA, Diverticulitis, Homicidal, Suicida l, threat to staff... and all critical care pts) @ -No Disposition Clinical Impression: Eye foreign body Disposition: HOME SELF-CARE Condition: Stable Instructions (If sedation given, give patient instructions): Eye Foreign Body (ED) Additional Instructions: Please instill 2 eye drops every 6 hours for 7 days. Follow up with your primary care provider. Return to the emergency department for new or worsening symptoms. Is patient prescribed a controlled substance at d/c from ED?: No Referrals: None,Stated [Primary Care Provider] - 1-2 days
[2023-07-20 18:00] VITALS: BP 112/65; PULSE 80; TEMP 98.6
== END 2023-07-20 17:53 | disposition home or self-care (01) ==
LOC: EC 16:37
DX: T15.01XA Foreign body in cornea, right eye, initial encounter (principal); F17.290 Nicotine dependence, other tobacco product, uncomplicated; Z86.59 Personal history of other mental and behavioral disorders
CPT/HCPCS: 99283

== ENCOUNTER 2023-09-29 05:20 | Emergency (ER) | payer BC, OTHER ==
[2023-09-29 05:47] VITALS: TEMP 98.5
[2023-09-29] MEDS ORDERED: KETOROLAC 15 MG/ML 1 ML VIAL IM STA (05:57)
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
[2023-09-29 06:59] VITALS: BP 119/56; PULSE 56; RESP 16
--- NOTE | 2023-09-29 07:12 | XR ---
EXAMINATION TYPE: XR shoulder complete RT DATE OF EXAM: 09/29/2023 6:24 AM CLINICAL INDICATION:Male, 23 years old with history of shoulder pain; [facility] COMPARISON: None TECHNIQUE: XR shoulder complete RT; examined in AP, internally rotated and scapular Y projections. FINDINGS: No evidence of acute osseous pathology, joint dislocation, or soft tissue swelling. The remaining po rtions of the visualized chest are unremarkable. IMPRESSION: No acute osseous pathology.
== END 2023-09-29 06:56 | disposition home or self-care (01) ==
LOC: EC 05:20
DX: M25.511 Pain in right shoulder (principal); F12.90 Cannabis use, unspecified, uncomplicated; F17.290 Nicotine dependence, other tobacco product, uncomplicated
CPT/HCPCS: 73030; 99283; 96372; J1885

== ENCOUNTER 2024-01-11 05:23 | Emergency (ER) | payer OTHER ==
[2024-01-11 06:07] VITALS: RESP 18
--- NOTE | 2024-01-11 06:12 | ED ---
Chest Pain HPI - General Chief Complaint: Chest Pain Stated Complaint: Chest Pain, Left hand numbness Time Seen by Provider: 01/11/24 05:59 Source: patient, RN notes reviewed Mode of arrival: ambulatory Limitations: no limitations - History of Present Illness Initial Comments: This is a 23-year-old male who presents to the emergency department for chest pain. States that this started around 4 AM when he was laying in bed. Pain is described as left-sided and sharp. His concern was that he also felt numbness in his left hand. Pain is coming in waves. Denies any pain shooting into the back, nausea, or shortness of breath associated with this. Denies any personal cardiac history. Does report that his aunt required cardiac stents but is unsure how old she was. MD Complaint: chest pain - Related Data Home Medications Medication Instructions Recorded Confirmed No Known Home Medications 01/11/24 01/11/24 Allergies Allergy/AdvReac Type Severity Reaction Status Date / Time No Known Allergies Allergy Verified 01/11/24 07:05 Review of Systems ROS Statement: Those systems with pertinent positive or pertinent negative responses have been documented in the HPI. ROS Other: All systems not noted in ROS Statement are negative. Past Medical History Past Medical History: No Reported History History of Any Multi-Drug Resistant Organisms: None Reported Past Surgical History: No Surgical Hx Reported Additional Past Surgical History / Comment(s): testical surgery at 9. Past Psychological History: Bipolar Smoking Status: Current every day smoker, Vaper Past Alcohol Use History: Occasional Past Drug Use History: Marijuana General Exam Limitations: no limitations General appearance: alert, in no apparent distress Head exam: Present: atraumatic, normocephalic, normal inspection Respiratory exam: Present: normal lung sounds bilaterally, chest wall tenderness. Absent: respiratory distress, wheezes, rales, rhonchi, stridor Cardiovascular Exam: Present: regular rate, normal rhythm, normal heart sounds. Absent: systolic murmur, diastolic murmur, rubs, gallop, clicks GI/Abdominal exam: Present: soft, normal bowel sounds. Absent: distended, tenderness, guarding, rebound, rigid Neurological exam: Present: alert, oriented X3, CN II-XII intact Psychiatric exam: Present: normal affect, normal mood Skin exam: Present: warm, dry, intact, normal color. Absent: rash Course Vital Signs 01/11/24 01/11/24 05:27 07:44 Temperature 97.9 F 98 F Pulse Rate 51 L 48 L Respiratory 18 18 Rate Blood Pressure 120/73 114/70 O2 Sat by Pulse 98 99 Oximetry Chest Pain MDM - MDM This is a 23 year old male who presents to the emergency department for chest pain. Was pt. sent in by a medical professional or institution? @ -No Did you speak to anyone other than the patient for history? @ -No Did you review nursing and triage notes? @ -Yes, and I agree, it is accurate with regards to the patient's symptoms. Were old charts reviewed? @ -No Differential Diagnosis? @ -Differential Chest Pain: Stable Angina, Unstable Angina, STEMI, NSTEMI Aortic Dissection, Pneumothorax, Musculoskeletal, Esophageal Spasm GERD, Cholecystitis, Pancreatitis, Zoster, this is not meant to be an all-inclusive list. EKG interpreted by me (3pts min.)? @ -EKG interpreted by me demonstrating the following: Sinus bradycardia. Ventricular rate 42 bpm, [place] interval 130 ms, QRS duration 113 ms, QTc 363 ms. X-rays interpreted by me (1pt min.)? @ -Chest x-ray obtained, my interpretation identifies no localized consolidations or infiltrates. CT interpreted by me (1pt min.)? @ -Not obtained U/S interpreted by me (1pt. min.)? @ -Not obtained What testing was considered but not performed? (CT, X-rays, U/S, labs)? Why? @ -None What meds were considered but not given? Why? @ -None Did you discuss the management of the patient with other professionals? @ -No Did you reconcile home meds? @ -No Was smoking cessation discussed for >3mins.? @ -No Was critical care preformed (if so, how long)? @ -No Were there social determinants of health that impacted care today? How? (Homelessness, low income, unemployed, alcoholism, drug addiction, transportation, low edu. Level, literacy, decrease access to med. care, snf, rehab)? @ -No Was there de-escalation of care discussed even if they declined? (Discuss DNR or withdrawal of care, Hospice)? @ -No What co-morbidities impacted this encounter? (DM, HTN, Smoking, COPD, CAD, Cancer, CVA, Hep., AIDS, mental health diagnosis, sleep apnea, morbid obesity)? @ -None Was patient admitted / discharged? @ -Discharged. Lab work unremarkable. Troponin and D-dimer negative. Patient treated with IV fluids, Toradol, and Tylenol with improvement in symptoms. Heart score is 0 and pain was entirely reproducible on exam. Symptoms likely musculoskeletal in nature. Advised ibuprofen and Tylenol as needed for pain relief and close follow-up with his primary care provider. Undiagnosed new problem with uncertain prognosis? @ -None Drug Therapy requiring intensive monitoring for toxicity (Heparin, Nitro, Insulin, Cardizem)? @ -None Were any procedures done? @ -None Diagnosis/symptom? @ -Atypical chest pain Acute, or Chronic, or Acute on Chronic? @ -Acute Uncomplicated (without systemic symptoms) or Complicated (systemic symptoms)? @ -Uncomplicated Side effects of treatment? @ -None Exacerbation, Progression, or Severe Exacerbation] @ -Not applicable Poses a threat to life or bodily function? @ -No Return precautions reviewed in depth, the patient is instructed to return to the emergency department with any new, worsening, or concerning symptoms. Patient verbalized understanding. This case was discussed in detail with the attending ED physician, Dr. Brantley. Presentation, findings, and treatment plan discussed in detail as well. Disposition Clinical Impression: Atypical chest pain Disposition: HOME SELF-CARE Instructions (If sedation given, give patient instructions): Noncardiac Chest Pain (ED) Additional Instructions: Return to the emergency department with any new, worsening, or concerning symptoms. Alternate with ibuprofen and Tylenol as needed for pain relief. Follow up with your primary care provider in 1-2 days. Is patient prescribed a controlled substance at d/c from ED?: No Referrals: None,Stated [Primary Care Provider] - 1-2 days Time of Disposition: 07:30
[2024-01-11 06:15] LABS: Basophils % (A) 1 %; Eosinophils # (A) 0.3 k/uL (0-0.7); Eosinophils % (A) 5 %; HCT 43.4 % (39.0-53.0); HGB 14.4 gm/dL (13.0-17.5); Lymphocytes # (A) 2.2 k/uL (1.0-4.8); Lymphocytes % (A) 42 %; MCH 28.7 pg (25.0-35.0); MCHC 33.1 g/dL (31.0-37.0); MCV 86.5 fL (80.0-100.0); Mean Platelet Volume 8.6; Monocytes # (A) 0.3 k/uL (0-1.0); Monocytes % (A) 6 %; Neutrophils # (A) 2.4 k/uL (1.3-7.7); Neutrophils % (A) 46 %; Platelet Count 175 k/uL (150-450); RBC 5.01 m/uL (4.30-5.90); RDW 12.9 % (11.5-15.5); WBC 5.3 k/uL (3.8-10.6)
[2024-01-11] MEDS: ACETAMINOPHEN TAB 500 MG TAB PO STA (06:18)
[2024-01-11] MEDS: KETOROLAC 15 MG/ML 1 ML VIAL IVP STA (06:18)
[2024-01-11] MEDS: SODIUM CHLORIDE 0.9% 500 ML 500 ML IV STA (06:22)
[2024-01-11 06:30] LABS: ALT 20 U/L (4-49); AST 30 U/L (17-59); African American GFR (CKD) >90 (>60 ml/min/1.73 sqM); Albumin 4.2 g/dL (3.5-5.0); Alkaline Phosphatase 87 U/L (38-126); Anion Gap 5 mmol/L; Blood Urea Nitrogen 12 mg/dL (9-20); Calcium 9.2 mg/dL (8.4-10.2); Carbon Dioxide 27 mmol/L (22-30); Chloride 106 mmol/L (98-107); Glucose 88 mg/dL (74-99); INR 1.1 (<1.2); Lipase 100 U/L (23-300); Non-African American GFR(CKD) >90 (>60 ml/min/1.73 sqM); Partial Thromboplastin Time 24.7 sec (22.0-30.0); Potassium 4.1 mmol/L (3.5-5.1); Prothrombin Time 11.9 sec (10.0-12.5); Sodium 138 mmol/L (137-145); Total Bilirubin 1.5 mg/dL (0.2-1.3); Total Protein 7.2 g/dL (6.3-8.2)
[2024-01-11 06:38] LABS: NT-Pro-B-Type Natriuretic Pept 35 pg/mL
--- NOTE | 2024-01-11 07:25 | XR ---
EXAMINATION TYPE: XR chest 1V portable DATE OF EXAM: 01/11/2024 Comparison: 12/04/2022 Clinical History: 23-year-old male with chest pain Findings: Heart size accentuated likely due to portable AP technique. Aorta and pulmonary vasculature are withi n normal limits. Lungs and pleural spaces are clear. Impression: No acute cardiopulmonary process.
[2024-01-11 08:16] VITALS: BP 114/70; PULSE 48; TEMP 98
== END 2024-01-11 07:45 | disposition home or self-care (01) ==
LOC: EC 05:23
DX: R07.89 Other chest pain (principal); R00.1 Bradycardia, unspecified; F17.290 Nicotine dependence, other tobacco product, uncomplicated; F12.90 Cannabis use, unspecified, uncomplicated
CPT/HCPCS: 99285; 96374; 96361; 36415; 93005; 85379; 83880; 80053; 83690; 83735; 84484; 85025; 85610; 85730; 71045; J1885

== ENCOUNTER → 2024-02-22 | Outpatient (CLI) | payer OTHER ==
--- NOTE | 2024-02-22 16:12 | XR ---
EXAMINATION TYPE: XR chest 2V, XR ribs LT DATE OF EXAM: 02/22/2024 CLINICAL HISTORY: Pain, Fall Four views of the ribs fail demonstrate evidence for displaced rib fracture or secondary sign of rib fracture. Visualized lungs are clear. No evidence for pneumothorax. IMPRESSION: No displaced rib fractures seen. ICD 10 NO FRACTURE, INITIAL EVALUATION EXAMINATION TYPE: XR chest 2V, XR ribs LT DATE OF EXAM: 02/22/2024 COMPARISON: NONE HISTORY: Chest pain TECHNIQUE: Frontal and lateral views of the chest are obtained. FINDINGS: There is no focal air space opacity. No evidence for pneumothorax. No pleural effusion. The cardiac silhouette size is within normal limits. The osseous structures are grossly intact. IMPRESSION: 1. No acute cardiopulmonary process.
== END | disposition home or self-care (01) ==
LOC: RADXRMAIN 15:40
PROVIDERS: ATTEND Emergency Medicine
DX: S20.20XA Contusion of thorax, unspecified, initial encounter (principal)
CPT/HCPCS: 71046

== ENCOUNTER → 2024-02-29 | Outpatient (CLI) | payer OTHER ==
--- NOTE | 2024-02-29 11:22 | XR ---
EXAMINATION TYPE: XR ribs LT DATE OF EXAM: 02/29/2024 10:52 AM CLINICAL INDICATION:Male, 23 years old with history of S20.20XD CONTUSION OF THORAX, UNSPECIFIED, SUB SEQ; [facility] COMPARISON: TECHNIQUE: XR ribs LT; Frontal and oblique views of the ribs with frontal chest radiograph. FINDINGS: The ribs have a normal appearance. No evidence of fracture. Overall, the lungs are clear. The cardiac silhouette is normal in size. The remaining osseous structures are intact. IMPRESSION: No acute osseous pathology.
== END | disposition home or self-care (01) ==
LOC: RADXRMAIN 10:31
PROVIDERS: ATTEND Emergency Medicine
DX: S20.20XD Contusion of thorax, unspecified, subsequent encounter (principal)